=== PATIENT | female | born 1950 | race Caucasian/White ===

== ENCOUNTER 2017-09-05 04:23 | Emergency (ER) | payer MEDICARE, OTHER ==
[~2017-09-05] VITALS: Ht 165.1 cm; Wt 77.2 kg
[2017-09-05] MEDS ORDERED: LOSA1TAB25 PO (04:47)
[2017-09-05] MEDS ORDERED: LEVO25TA2 PO (04:47)
[2017-09-05] MEDS ORDERED: OMEG-130 PO (04:48)
[2017-09-05] MEDS ORDERED: OXYMETAZOLINE NASAL SPRAY 0.05%, 15ML ONE (05:14)
[2017-09-05] MEDS ORDERED: SILVER NITRATE STICK TP ONE (06:51)
[2017-09-05 07:14] VITALS: BP 124/79
== END 2017-09-05 07:16 | disposition home or self-care (01) ==
LOC: ED 05:31
DX: R04.0 Epistaxis (principal); I10 Essential (primary) hypertension
CPT/HCPCS: 30901; 99284

== ENCOUNTER 2017-09-05 10:22 | Emergency (ER) | payer MEDICARE, OTHER ==
[~2017-09-05] VITALS: Ht 165.1 cm; Wt 76.4 kg
[~2017-09-05 10:22] MED LIST: LEVO25TA2 PO; LOSA1TAB25 PO; OMEG-130 PO
[2017-09-05 10:49] VITALS: BP 152/86
== END 2017-09-05 11:40 | disposition home or self-care (01) ==
LOC: ED 11:33
DX: R04.0 Epistaxis (principal); I10 Essential (primary) hypertension
CPT/HCPCS: 99281

== ENCOUNTER → 2017-10-20 | Outpatient (CLI) | payer MEDICARE, OTHER | END | disposition home or self-care (01) | LOC: CFH 08:12 | PROVIDERS: ATTEND Family Medicine | DX: Z12.31 Encounter for screening mammogram for malignant neoplasm of breast (principal) | CPT/HCPCS: 77063; 77067 ==

== ENCOUNTER → 2018-11-16 | Outpatient (CLI) | payer MEDICARE, OTHER | END | disposition home or self-care (01) | LOC: CFH 08:22 | PROVIDERS: ATTEND Family Medicine | DX: M85.88 Other specified disorders of bone density and structure, other site (principal); M81.0 Age-related osteoporosis without current pathological fracture | CPT/HCPCS: 77080 ==